=== PATIENT | female | born 1945 | race African-American/Black ===

== ENCOUNTER 2018-05-25 01:24 | Emergency (ER) | payer OTHER ==
[~2018-05-25] VITALS: Ht 160 cm; Wt 59.0 kg
[2018-05-25] MEDS ORDERED: DEXTROSE 5% WATER 1,000 ML IV ONE (02:01)
[2018-05-25 02:06] LABS: BASOPHILS % 0.7 % (0.0-2.0); EOSINOPHILS % 0.4 % (0.0-5.0); HEMATOCRIT. 27.6 % (36.0-48.0); MEAN CORPUSCULAR HEMOGLOBIN 25.6 pg (28.0-32.0); MEAN PLATELET VOLUME 5.8 fl (7.4-10.4); MONOCYTES % 6.4 % (2.0-8.0); NEUTROPHILS % 81.5 % (40.0-76.0); PLATELET 343 x1000/uL (130-400); RED CELL DISTRIBUTION WIDTH 16.1 % (11.6-14.6)
[2018-05-25 02:12] LABS: CHLORIDE 111 mEq/L (98-107)
[2018-05-25] MEDS ORDERED: DEXTROSE 50% WATER 50ML SYRINGE IV ONE (03:00)
[2018-05-25 05:40] VITALS: BP 147/59
== END 2018-05-25 05:49 | disposition short-term general hospital (02) ==
LOC: ER 01:24
DX: E11.649 Type 2 diabetes mellitus with hypoglycemia without coma (principal); G93.49 Other encephalopathy; Z79.84 Long term (current) use of oral hypoglycemic drugs; Z85.43 Personal history of malignant neoplasm of ovary; Z96.649 Presence of unspecified artificial hip joint; Z88.5 Allergy status to narcotic agent; T38.3X5A Adverse effect of insulin and oral hypoglycemic [antidiabetic] drugs, initial encounter; Y92.018 Other place in single-family (private) house as the place of occurrence of the external cause
CPT/HCPCS: 36415; 71045; 73502; 80048; 82962; 84484; 85025; 93005; 96365; 96366; 96376; 99285; J7070; Z7610